=== PATIENT | male | born 1945 | race Caucasian/White ===

== ENCOUNTER → 2024-01-02 11:02 | Outpatient (REF) | payer MEDICARE, SELFPAY ==
[2024-01-02 12:43] LABS: ALT (SGPT) 20 U/L (0-50); AST (SGOT) 19 U/L (17-59); Albumin 4.1 g/dl (3.5-5.0); Alkaline Phosphatase 72 U/L (38-126); Blood Urea Nitrogen 42 mg/dl (9-20); Calcium 10.4 mg/dl (8.4-10.2); Carbon Dioxide 23 mmol/L (22-30); Chloride 102 mmol/L (98-107); Glucose 294 mg/dl (70-99); Potassium 5.6 mmol/L (3.5-5.1); Sodium 136 mmol/L (135-145); Total Bilirubin 1.1 mg/dl (0.2-1.3); eGFR 29.72
[2024-01-02 12:52] LABS: Glycohemoglobin (HgbA1c) 12.6 % (4.0-5.6)
[2024-01-04 00:48] LABS: C-Peptide 3.5 ng/mL (0.5-3.3)
== END ==
LOC: REG 11:02
PROVIDERS: ATTENDING PHYSICIAN Internal Medicine Geriatric Medicine
DX: Z00.00 Encounter for general adult medical examination without abnormal findings (principal); E78.2 Mixed hyperlipidemia; E11.9 Type 2 diabetes mellitus without complications; E87.5 Hyperkalemia; L98.9 Disorder of the skin and subcutaneous tissue, unspecified; N28.1 Cyst of kidney, acquired; R97.20 Elevated prostate specific antigen [PSA]; E11.49 Type 2 diabetes mellitus with other diabetic neurological complication; R26.89 Other abnormalities of gait and mobility; R53.1 Weakness; Z13.89 Encounter for screening for other disorder; E55.9 Vitamin D deficiency, unspecified; Z12.5 Encounter for screening for malignant neoplasm of prostate
CPT/HCPCS: 36415; 80053; 83036; 84681

== ENCOUNTER → 2024-02-23 06:26 | Outpatient (REF) | payer MEDICARE, SELFPAY ==
[2024-02-23 07:32] LABS: % Basophils 1.1 % (0-2); % Eosinophils 8.2 % (0-6); % Immature Granulocytes 0.4 % (0-0.5); % Lymphocytes 24.8 % (20.5-51.1); % Monocytes 9.2 % (1.7-9.3); % Neutrophils 56.3 % (42.2-75.2); Absolute Basophils 0.1 10^3/uL (0-0.2); Absolute Eosinophils 0.7 10^3/uL (0-0.7); Absolute Lymphocytes 2.1 10^3/uL (1.2-3.4); Absolute Monocytes 0.8 10^3/uL (0.1-0.6); Absolute Neutrophils 4.7 10^3/uL (1.4-6.5); Hematocrit 45.9 % (39.0-52.0); Hemoglobin 15.1 g/dL (13.0-18.0); Mean Corp Hgb Conc. 32.9 g/dL (33.0-37.0); Mean Corpuscular Hgb 28.4 pg (27.0-31.0); Mean Corpuscular Volume 86.3 fL (80.0-94.0); Mean Platelet Volume 11.3 fL (7.4-10.4); Nucleated Red Blood Cells % 0 % (-); Platelet Count 273 10^3/uL (130-400); Red Blood Cell Count 5.32 10^6/uL (4.70-6.10); Red Cell Dist. Width 14.3 % (11.5-14.5); White Blood Cell Count 8.3 10^3/uL (4.8-10.8)
[2024-02-23 08:24] LABS: ALT (SGPT) 23 U/L (0-50); AST (SGOT) 22 U/L (17-59); Albumin 3.9 g/dl (3.5-5.0); Alkaline Phosphatase 71 U/L (38-126); Blood Urea Nitrogen 46 mg/dl (9-20); Calcium 9.9 mg/dl (8.4-10.2); Carbon Dioxide 25 mmol/L (22-30); Chloride 103 mmol/L (98-107); Glucose 184 mg/dl (70-99); HDL Cholesterol 63 mg/dl; LDL Cholesterol, Calculated 116 mg/dl; Potassium 5.8 mmol/L (3.5-5.1); Sodium 142 mmol/L (135-145); Total Bilirubin 0.6 mg/dl (0.2-1.3); Total Cholesterol 227 mg/dl (50-199); Total Protein 7.8 g/dl (6.3-8.2); Triglyceride 242 mg/dl (10-149); Very Low Density Lipoprotein 48 mg/dl (0-30); eGFR 31.43
[2024-02-23 09:08] LABS: Glycohemoglobin (HgbA1c) 12.3 % (4.0-5.6)
[2024-02-23 10:46] LABS: Vitamin D, 25-OH*** 33.8 ng/mL (30-80)
[2024-02-23 11:00] LABS: PSA, Total - Screen 2.19 ng/ml (0.0-4.0)
[2024-02-23 11:21] LABS: Microalbumin, Random Urine 48.2 mg/dl (0.6-1.7); Microalbumin/creatinine Ratio 552.8 mg/g
== END ==
LOC: REG 06:26
PROVIDERS: ATTENDING PHYSICIAN Nurse Practitioner Family; FAMILY PHYSICIAN Internal Medicine Geriatric Medicine
DX: M79.671 Pain in right foot (principal); E11.9 Type 2 diabetes mellitus without complications; E11.49 Type 2 diabetes mellitus with other diabetic neurological complication; N18.32 Chronic kidney disease, stage 3b; E78.2 Mixed hyperlipidemia; L98.9 Disorder of the skin and subcutaneous tissue, unspecified; N28.1 Cyst of kidney, acquired; R97.20 Elevated prostate specific antigen [PSA]; R53.1 Weakness; E55.9 Vitamin D deficiency, unspecified; Z12.5 Encounter for screening for malignant neoplasm of prostate
CPT/HCPCS: 36415; 80053; 80061; 82043; 82306; 82570; 83036; 84550; 85025; G0103

== ENCOUNTER → 2024-02-28 10:33 | Outpatient (REF) | payer MEDICARE, SELFPAY ==
[2024-02-28 12:14] LABS: Blood Urea Nitrogen 38 mg/dl (9-20); Calcium 10.2 mg/dl (8.4-10.2); Carbon Dioxide 26 mmol/L (22-30); Chloride 102 mmol/L (98-107); Glucose 182 mg/dl (70-99); Potassium 5.8 mmol/L (3.5-5.1); Sodium 142 mmol/L (135-145); eGFR 35.44
== END ==
LOC: REG 10:33
PROVIDERS: ATTENDING PHYSICIAN Nurse Practitioner Family; REFERRING PHYSICIAN Internal Medicine Geriatric Medicine
DX: E87.5 Hyperkalemia (principal)
CPT/HCPCS: 36415; 80048

== ENCOUNTER → 2024-04-30 07:58 | Outpatient (REF) | payer MEDICARE, SELFPAY ==
[2024-04-30 10:30] LABS: ALT (SGPT) 20 U/L (0-50); AST (SGOT) 20 U/L (17-59); Albumin 4.4 g/dl (3.5-5.0); Alkaline Phosphatase 55 U/L (38-126); Blood Urea Nitrogen 54 mg/dl (9-20); Calcium 10.2 mg/dl (8.4-10.2); Carbon Dioxide 25 mmol/L (22-30); Chloride 106 mmol/L (98-107); Glucose 200 mg/dl (70-99); Potassium 5.7 mmol/L (3.5-5.1); Sodium 145 mmol/L (135-145); Total Bilirubin 0.6 mg/dl (0.2-1.3); Total Protein 8.6 g/dl (6.3-8.2)
[2024-05-01 15:13] LABS: Fructosamine 510 umol/L (205-285)
== END ==
LOC: REG 07:58
PROVIDERS: ATTENDING PHYSICIAN Internal Medicine Geriatric Medicine
DX: E11.9 Type 2 diabetes mellitus without complications (principal); E78.2 Mixed hyperlipidemia; E55.9 Vitamin D deficiency, unspecified; N18.32 Chronic kidney disease, stage 3b; R53.1 Weakness; L98.9 Disorder of the skin and subcutaneous tissue, unspecified; R26.89 Other abnormalities of gait and mobility; Z13.89 Encounter for screening for other disorder; M10.052 Idiopathic gout, left hip; Z23 Encounter for immunization
CPT/HCPCS: 36415; 80053; 82985

== ENCOUNTER → 2024-05-16 06:51 | Outpatient (REF) | payer MEDICARE, SELFPAY ==
[2024-05-16 08:03] LABS: % Basophils 0.6 % (0-2); % Eosinophils 4.8 % (0-6); % Immature Granulocytes 1.7 % (0-0.5); % Lymphocytes 21.4 % (20.5-51.1); % Monocytes 6.3 % (1.7-9.3); % Neutrophils 65.2 % (42.2-75.2); Absolute Basophils 0.1 10^3/uL (0-0.2); Absolute Eosinophils 0.5 10^3/uL (0-0.7); Absolute Immature Granulocytes 0.2 10^3/uL (0-0.05); Absolute Monocytes 0.6 10^3/uL (0.1-0.6); Absolute Neutrophils 6.1 10^3/uL (1.4-6.5); Hematocrit 44.8 % (39.0-52.0); Hemoglobin 14.5 g/dL (13.0-18.0); Mean Corp Hgb Conc. 32.4 g/dL (33.0-37.0); Mean Corpuscular Hgb 28.7 pg (27.0-31.0); Mean Corpuscular Volume 88.7 fL (80.0-94.0); Mean Platelet Volume 10.2 fL (7.4-10.4); Nucleated Red Blood Cells % 0 % (-); Platelet Count 317 10^3/uL (130-400); Red Blood Cell Count 5.05 10^6/uL (4.70-6.10); Red Cell Dist. Width 13.6 % (11.5-14.5); White Blood Cell Count 9.4 10^3/uL (4.8-10.8)
[2024-05-16 09:07] LABS: ALT (SGPT) 24 U/L (0-50); AST (SGOT) 23 U/L (17-59); Albumin 4.3 g/dl (3.5-5.0); Alkaline Phosphatase 58 U/L (38-126); Blood Urea Nitrogen 57 mg/dl (9-20); Calcium 10.1 mg/dl (8.4-10.2); Carbon Dioxide 22 mmol/L (22-30); Chloride 103 mmol/L (98-107); Glucose 113 mg/dl (70-99); Phosphorus 4.8 mg/dl (2.5-4.5); Potassium 5.2 mmol/L (3.5-5.1); Sodium 140 mmol/L (135-145); Total Bilirubin 0.6 mg/dl (0.2-1.3); Total Protein 8.4 g/dl (6.3-8.2); eGFR 29.54
[2024-05-16 10:44] LABS: Osmolality Urine 550 mOsm/kg (300-900)
[2024-05-16 13:36] LABS: Urine Potassium 24.9 mmol/L (30-90)
[2024-05-16 14:28] LABS: Microalbumin, Random Urine 48.9 mg/dl (0.6-1.7); Microalbumin/creatinine Ratio 667.1 mg/g
[2024-05-16 15:10] LABS: Osmolality Serum 308 mOsm/kg (275-300)
[2024-05-19 09:38] LABS: 24 Hour Urine Total Volume Random mL; Urine Collection Length Random hr; Urine Free Kappa Light Chains 80.18 mg/L (0.00-32.90); Urine Free Lambda Light Chains 16.74 mg/L (0.00-3.79)
== END ==
LOC: REG 06:51
PROVIDERS: ATTENDING PHYSICIAN Specialist; FAMILY PHYSICIAN Internal Medicine Geriatric Medicine
DX: E11.69 Type 2 diabetes mellitus with other specified complication (principal); E78.2 Mixed hyperlipidemia; E55.9 Vitamin D deficiency, unspecified; E87.5 Hyperkalemia; N18.32 Chronic kidney disease, stage 3b; R53.1 Weakness; L98.9 Disorder of the skin and subcutaneous tissue, unspecified; R26.89 Other abnormalities of gait and mobility; Z13.89 Encounter for screening for other disorder; M10.052 Idiopathic gout, left hip
CPT/HCPCS: 36415; 80053; 82043; 82088; 82570; 83036; 83521; 83930; 83935; 84100; 84133; 84155; 84156; 84165; 84244; 85025; 86335

== ENCOUNTER → 2024-07-02 08:32 | Outpatient (REF) | payer MEDICARE, SELFPAY | LOC: RAD 08:32 | PROVIDERS: FAMILY PHYSICIAN Internal Medicine Geriatric Medicine; OTHER PHYSICIAN Specialist | DX: N18.4 Chronic kidney disease, stage 4 (severe) (principal) | CPT/HCPCS: 76770 ==

== ENCOUNTER → 2024-08-31 06:24 | Outpatient (REF) | payer MEDICARE, SELFPAY ==
[2024-08-31 07:18] LABS: % Basophils 0.8 % (0-2); % Eosinophils 5.9 % (0-6); % Immature Granulocytes 0.3 % (0-0.5); % Lymphocytes 18.4 % (20.5-51.1); % Monocytes 8.2 % (1.7-9.3); % Neutrophils 66.4 % (42.2-75.2); Absolute Basophils 0.1 10^3/uL (0-0.2); Absolute Eosinophils 0.6 10^3/uL (0-0.7); Absolute Monocytes 0.9 10^3/uL (0.1-0.6); Hematocrit 49.9 % (39.0-52.0); Hemoglobin 16.3 g/dL (13.0-18.0); Mean Corp Hgb Conc. 32.7 g/dL (33.0-37.0); Mean Corpuscular Hgb 28.4 pg (27.0-31.0); Mean Corpuscular Volume 87.1 fL (80.0-94.0); Mean Platelet Volume 10.5 fL (7.4-10.4); Nucleated Red Blood Cells % 0 % (-); Platelet Count 283 10^3/uL (130-400); Red Blood Cell Count 5.73 10^6/uL (4.70-6.10); Red Cell Dist. Width 15.2 % (11.5-14.5); White Blood Cell Count 10.6 10^3/uL (4.8-10.8)
[2024-08-31 07:46] LABS: ALT (SGPT) 26 U/L (0-50); AST (SGOT) 22 U/L (17-59); Alkaline Phosphatase 79 U/L (38-126); Blood Urea Nitrogen 45 mg/dl (9-20); Calcium 10.3 mg/dl (8.4-10.2); Carbon Dioxide 26 mmol/L (22-30); Chloride 105 mmol/L (98-107); Glucose 93 mg/dl (70-99); HDL Cholesterol 62 mg/dl; LDL Cholesterol, Calculated 83 mg/dl; Phosphorus 4.7 mg/dl (2.5-4.5); Potassium 5.3 mmol/L (3.5-5.1); Sodium 143 mmol/L (135-145); Total Bilirubin 0.6 mg/dl (0.2-1.3); Total Cholesterol 195 mg/dl (50-199); Total Protein 8.2 g/dl (6.3-8.2); Triglyceride 250 mg/dl (10-149); Very Low Density Lipoprotein 50 mg/dl (0-30); eGFR 29.54
[2024-08-31 07:49] LABS: Urine Albumin 3+ (Neg - Trace); Urine Bilirubin Negative (Negative); Urine Character Clear (Clear); Urine Color Yellow; Urine Glucose 4+ (Negative); Urine Ketone Negative (Negative); Urine Leukocyte Negative (Negative); Urine Nitrite Negative (Negative); Urine Occult Blood Negative (Negative); Urine Urobilinogen Negative (Neg - 1+)
[2024-08-31 08:21] LABS: Osmolality Urine 587 mOsm/kg (300-900)
[2024-08-31 09:30] LABS: Glycohemoglobin (HgbA1c) 6.7 % (4.0-5.6)
[2024-08-31 09:39] LABS: Urine Squamous Cell 0-2 /LPF (Few)
[2024-08-31 09:40] LABS: Urine Amorphous Seen; Urine Mucus Few
[2024-08-31 09:41] LABS: Urine Granular Cast 0-2 /LPF (0); Urine Hyaline Cast 0-2 /LPF (0-2); Urine Red Blood Cell 0-2 /HPF (0-2); Urine White Cell 0-2 /HPF (0-5)
[2024-08-31 09:44] LABS: Osmolality Serum 309 mOsm/kg (275-300)
[2024-08-31 09:46] LABS: Urine Potassium 41.2 mmol/L (30-90)
[2024-08-31 11:26] LABS: Microalbumin, Random Urine > 57.0 mg/dl (0.6-1.7)
[2024-09-02 12:10] LABS: 24 Hour Urine Total Volume Random mL; Urine Collection Length Random hr; Urine Free Lambda Light Chains 20.49 mg/L (0.00-3.79)
[2024-09-03 08:01] LABS: Aldosterone, Serum 21.2 ng/dL; Aldosterone/Renin Activ Ratio 21.2 ratio (<=25.0)
== END ==
LOC: REG 06:24
PROVIDERS: ATTENDING PHYSICIAN Specialist; FAMILY PHYSICIAN Internal Medicine Geriatric Medicine
DX: E87.5 Hyperkalemia (principal); N18.32 Chronic kidney disease, stage 3b; E11.69 Type 2 diabetes mellitus with other specified complication; E55.9 Vitamin D deficiency, unspecified; R53.1 Weakness; L98.9 Disorder of the skin and subcutaneous tissue, unspecified; R26.89 Other abnormalities of gait and mobility; Z13.89 Encounter for screening for other disorder; M10.052 Idiopathic gout, left hip
CPT/HCPCS: 36415; 80053; 80061; 81003; 81015; 82043; 82088; 82570; 83036; 83521; 83930; 83935; 84100; 84133; 84155; 84156; 84165; 84244; 84681; 85025; 86335

== ENCOUNTER → 2025-02-05 06:20 | Outpatient (REF) | payer MEDICARE, SELFPAY ==
[2025-02-05 06:58] LABS: Hematocrit 47.3 % (39.0-52.0); Hemoglobin 16.0 g/dL (13.0-18.0); Mean Corp Hgb Conc. 33.8 g/dL (33.0-37.0); Mean Corpuscular Volume 88.7 fL (80.0-94.0); Nucleated Red Blood Cells % 0 % (-); Platelet Count 263 10^3/uL (130-400); Red Cell Dist. Width 14.6 % (11.5-14.5)
[2025-02-05 07:11] LABS: Urine Character Clear (Clear)
[2025-02-05 07:46] LABS: Vitamin D, 25-OH*** 46.4 ng/mL (30-80)
[2025-02-05 08:00] LABS: PSA, Total - Screen 3.07 ng/ml (0.0-4.0)
[2025-02-05 08:08] LABS: ALT (SGPT) 37 U/L (0-50); AST (SGOT) 26 U/L (17-59); Albumin 4.4 g/dl (3.5-5.0); Alkaline Phosphatase 66 U/L (38-126); Blood Urea Nitrogen 54 mg/dl (9-20); Calcium 9.9 mg/dl (8.4-10.2); Carbon Dioxide 23 mmol/L (22-30); Chloride 106 mmol/L (98-107); Glucose 82 mg/dl (70-99); HDL Cholesterol 75 mg/dl; LDL Cholesterol, Calculated 76 mg/dl; Potassium 4.9 mmol/L (3.5-5.1); Sodium 141 mmol/L (135-145); Total Protein 8.4 g/dl (6.3-8.2); Very Low Density Lipoprotein 34 mg/dl (0-30); eGFR 26.61
[2025-02-05 08:11] LABS: Urine Squamous Cell 0-2 /LPF (Few); Urine Urothelial Cell 0-2 /LPF (FEW)
[2025-02-05 08:13] LABS: Urine Red Blood Cell 0-2 /HPF (0-2); Urine White Cell 0-2 /HPF (0-5)
[2025-02-05 09:19] LABS: Microalb - Urine Creatinine 58.500 mg/dl
[2025-02-05 10:13] LABS: Microalbumin, Random Urine 24.3 mg/dl (0.6-1.7)
[2025-02-05 10:37] LABS: Glycohemoglobin (HgbA1c) 6.4 % (4.0-5.6)
== END ==
LOC: REG 06:20
PROVIDERS: ATTENDING PHYSICIAN Internal Medicine Geriatric Medicine
DX: E11.69 Type 2 diabetes mellitus with other specified complication (principal); E78.2 Mixed hyperlipidemia; E87.5 Hyperkalemia; N18.32 Chronic kidney disease, stage 3b; E55.9 Vitamin D deficiency, unspecified; E83.52 Hypercalcemia; Z13.31 Encounter for screening for depression; Z12.5 Encounter for screening for malignant neoplasm of prostate
CPT/HCPCS: 36415; 80053; 80061; 81003; 81015; 82043; 82306; 82570; 83036; 83970; 85025; G0103